=== PATIENT | female | born 1995 | race Caucasian/White ===

== ENCOUNTER 2021-12-17 13:25 | Observation (INO) | payer MEDICAID ==
[~2021-12-17] VITALS: Ht 160 cm; Wt 79.8 kg
[2021-12-17] MEDS ORDERED: PNV91TAB8 PO (14:01)
[2021-12-17] MEDS ORDERED: OSC500 PO (14:04)
[2021-12-17] MEDS ORDERED: FERR-20 PO (14:04)
[2021-12-17 14:06] VITALS: BP 122/69
== END 2021-12-17 15:33 | disposition home or self-care (01) ==
LOC: MLD 13:25
PROVIDERS: ADMIT Obstetrics & Gynecology; ATTEND Obstetrics & Gynecology
DX: O23.42 Unspecified infection of urinary tract in pregnancy, second trimester (principal); O30.002 Twin pregnancy, unspecified number of placenta and unspecified number of amniotic sacs, second trimester; Z3A.24 24 weeks gestation of pregnancy
CPT/HCPCS: 59025; 76817; 81000; G0378; G0379; Q0092

== ENCOUNTER 2022-01-20 10:17 | Observation (INO) | payer MEDICAID ==
[~2022-01-20] VITALS: Ht 162 cm; Wt 82.6 kg
[~2022-01-20 10:17] MED LIST: FERR-20 PO; OSC500 PO; PNV91TAB8 PO
[2022-01-20 10:48] VITALS: BP 114/77
[2022-01-20 13:04] LABS: APPEARANCE,URINE SLIGHTLY CLOUDY (CLEAR); COLOR,URINE YELLOW (YELLOW); PH,URINE 7.5 (5.0-9.0)
[2022-01-20 13:05] LABS: BILIRUBIN,URINE NEGATIVE (NEGATIVE); BLOOD, URINE 1+ (NEGATIVE); LEUKOCYTE ESTERASE ,URINE 3+ (NEGATIVE); NITRITE, URINE NEGATIVE (NEGATIVE); UGLUCOSE NEGATIVE (NEGATIVE)
[2022-01-20 13:06] LABS: CALCIUM OXALATE CRYSTALS,UR None Seen /HPF (None Seen); TRICHOMONAS,URINE None Seen /HPF (None Seen); WBC,URINE 20-60 /HPF (0-5); YEAST,URINE None Seen /HPF (None Seen)
[2022-01-20 13:07] LABS: TRIPLE PHOSPHATE CRYSTAL,UR None Seen /HPF (None Seen); URIC ACID CRYSTALS,URINE None Seen /HPF (None Seen)
== END 2022-01-20 14:50 | disposition home or self-care (01) ==
LOC: MLD 10:17
PROVIDERS: ADMIT Obstetrics & Gynecology; ATTEND Obstetrics & Gynecology
DX: O36.8130 Decreased fetal movements, third trimester, not applicable or unspecified (principal); O30.033 Twin pregnancy, monochorionic/diamniotic, third trimester; Z3A.29 29 weeks gestation of pregnancy
CPT/HCPCS: 59025; 76805; 76819; 81001; 87086; G0378; G0379; Q0092

== ENCOUNTER 2022-02-28 15:50 | Observation (INO) | payer MEDICAID ==
[~2022-02-28] VITALS: Ht 152.4 cm; Wt 87.1 kg
== END 2022-02-28 18:45 | disposition home or self-care (01) ==
LOC: MLD 15:50
PROVIDERS: ADMIT Obstetrics & Gynecology; ATTEND Obstetrics & Gynecology
DX: O36.8130 Decreased fetal movements, third trimester, not applicable or unspecified (principal); O26.893 Other specified pregnancy related conditions, third trimester; R10.9 Unspecified abdominal pain; Z3A.35 35 weeks gestation of pregnancy
CPT/HCPCS: 76819; G0378; Q0092; 59025

== ENCOUNTER 2022-03-14 14:57 | Inpatient (IN) | payer MEDICAID ==
[~2022-03-14] VITALS: Ht 154.9 cm; Wt 87.1 kg
[2022-03-14 16:12] VITALS: BP 135/71
[2022-03-14] MEDS ORDERED: LACTATED RINGERS 500 ML IV SCH (17:45)
[2022-03-14 18:24] LABS: BASOPHILS # (AUTO) 0.1 K/uL (0.00-0.22); BASOPHILS % (AUTO) 0.5 % (0.0-2.0); EOSINOPHILS % (AUTO) 0.3 % (0.0-4.0); HEMATOCRIT 42.1 % (36-48); HEMOGLOBIN 14.2 g/dL (12.0-16.0); LYMPHOCYTES % (AUTO) 32.1 % (20.5-51.1); MEAN CORPUSCULAR HEMOGLOBIN 31 pg (27-31); MEAN CORPUSCULAR HGB CONC 34 g/dL (33-37); MEAN CORPUSCULAR VOLUME 92.5 fL (80-94); MONOCYTES # (AUTO) 0.5 K/uL (0.8-1.0); MONOCYTES % (AUTO) 5.5 % (1.7-9.3); NEUTROPHILS # (AUTO) 5.9 K/uL (1.8-7.7); NEUTROPHILS % (AUTO) 61.6 % (42.2-75.2); PLATELET COUNT (AUTO) 152 K/uL (140-450); RED BLOOD CELL COUNT(AUTO) 4.55 MIL/uL (4.20-5.40); RED CELL DISTRIBUTION WIDTH 15.3 % (11.6-13.7); WHITE BLOOD COUNT (AUTO) 9.5 K/uL (4.8-10.8)
[2022-03-14 18:36] LABS: PROTHROMBIN TIME 8.7 secs (10.8-13.4)
[2022-03-14 18:39] LABS: ANION GAP 16.1 (8-16); CREATININE 0.8 mg/dL (0.6-1.3); POTASSIUM 4.1 mmol/L (3.5-5.1); TOTAL BILIRUBIN 0.3 mg/dL (0.0-1.0)
[2022-03-14] MEDS ORDERED: fentaNYL citrate 0.05 MG/ML VIAL ONE (19:19)
[2022-03-14] MEDS ORDERED: MORPHINE PRES FREE 10 MG/10 ML AMP IV ONE (19:19)
[2022-03-14] MEDS ORDERED: ceFAZolin 2,000 MG VIAL ONE (19:32)
[2022-03-14] MEDS ORDERED: MEASLES, MUMPS, AND RUBELLA 1 VIAL SQVAC ONE (20:55)
[2022-03-14] MEDS ORDERED: METHYLERGONOVINE 0.2 MG/ML AMP IM PRN (20:55)
[2022-03-14] MEDS ORDERED: oxyCODONE/APAP 5/325 MG 1 TAB TAB PO PRN (20:55)
[2022-03-14] MEDS: OXYTOCIN 20 UNITS/LR PREMIX 1,000 ML IV ONE ×2 (21:38→22:00)
[2022-03-14] MEDS ORDERED: KETOROLAC 60 MG/2 ML VIAL IM PRN (21:40)
[2022-03-14] MEDS ORDERED: diphenhydrAMINE 50 MG/ML VIAL IVP PRN (21:40)
[2022-03-14] MEDS ORDERED: ONDANSETRON 4 MG/2 ML VIAL IVP PRN (21:40)
[2022-03-14] MEDS ORDERED: MAG SULF 2000 MG/WATER PREMIX 100 ML IV SCH (22:30)
[2022-03-14] MEDS: MAG SULF 20 GM/H2O PREMIX DRIP 500 ML IV PRN (23:18)
[2022-03-15] MEDS: OXYTOCIN 20 UNITS in LACTATED RINGERS 1,000 ML IV SCH ×2 (00:35→07:21)
[2022-03-15 05:43] LABS: BASOPHILS % (AUTO) 0.1 % (0.0-2.0); HEMATOCRIT 37.9 % (36-48); HEMOGLOBIN 12.7 g/dL (12.0-16.0); LYMPHOCYTES # (AUTO) 2.4 K/uL (2.5-16.5); MEAN CORPUSCULAR HEMOGLOBIN 31 pg (27-31); MEAN CORPUSCULAR HGB CONC 34 g/dL (33-37); MEAN CORPUSCULAR VOLUME 91.9 fL (80-94); MONOCYTES # (AUTO) 0.7 K/uL (0.8-1.0); MONOCYTES % (AUTO) 4.6 % (1.7-9.3); NEUTROPHILS # (AUTO) 11.7 K/uL (1.8-7.7); NEUTROPHILS % (AUTO) 79.3 % (42.2-75.2); PLATELET COUNT (AUTO) 142 K/uL (140-450); RED BLOOD CELL COUNT(AUTO) 4.12 MIL/uL (4.20-5.40); RED CELL DISTRIBUTION WIDTH 15.8 % (11.6-13.7); WHITE BLOOD COUNT (AUTO) 14.7 K/uL (4.8-10.8)
[2022-03-15] MEDS ORDERED: OXYTOCIN 20 UNITS/LR PREMIX 1,000 ML IV ONE (07:00)
[2022-03-15] MEDS ORDERED: KETOROLAC 30 MG/ML VIAL ONE (08:11)
--- NOTE | 2022-03-15 08:28 | NUR ---
PATIENT HAS BEEN SCREENED AND CATEGORIZED LOW NUTRITION RISK. PATIENT WILL BE SEEN WITHIN 7 DAYS OF ADMISSION. 03/21/[address]
[2022-03-15] MEDS ORDERED: bisacodyL 10 MG SUPP RC SCH (09:00)
[2022-03-15] MEDS: MAG SULF 20 GM/H2O PREMIX DRIP 500 ML IV PRN ×2 (11:37→21:46)
[2022-03-15] MEDS: KETOROLAC 30 MG/ML VIAL IVP PRN ×2 (14:25→22:37)
[2022-03-15] MEDS ORDERED: ACETAMINOPHEN 325 MG TAB PO PRN (20:35)
[2022-03-16] MEDS ORDERED: MEASLES, MUMPS, AND RUBELLA 1 VIAL SQVAC ONE (03:24)
== END 2022-03-16 17:05 | disposition home or self-care (01) | DRG 540 ==
LOC: MLD 14:57 → OBSVTOIN 18:00 → MFCC 22:07
PROVIDERS: ADMIT Obstetrics & Gynecology; ATTEND Obstetrics & Gynecology
PROC: 10D00Z1 Extraction of Products of Conception, Low, Open Approach (ICD-10-PCS; principal; 2022-03-14 19:30)
DX: O36.8130 Decreased fetal movements, third trimester, not applicable or unspecified (principal); O60.14X0 Preterm labor third trimester with preterm delivery third trimester, not applicable or unspecified; O60.14X1 Preterm labor third trimester with preterm delivery third trimester, fetus 1; O60.14X2 Preterm labor third trimester with preterm delivery third trimester, fetus 2; O30.043 Twin pregnancy, dichorionic/diamniotic, third trimester; Z37.2 Twins, both liveborn; O36.5930 Maternal care for other known or suspected poor fetal growth, third trimester, not applicable or unspecified; O76 Abnormality in fetal heart rate and rhythm complicating labor and delivery; Z20.822 Contact with and (suspected) exposure to COVID-19; Z3A.36 36 weeks gestation of pregnancy
CPT/HCPCS: 36415; 51702; 76819; 80053; 85025; 85610; 85730; 86592; 86886; 86900; 86901; 90707; 90715; J0690; J1885; J2270; J2590; J3010; J3475; J7060; J7120; Q0092